=== PATIENT | male | born 1955 | race Caucasian/White ===

== ENCOUNTER → 2017-01-14 | Outpatient (CLI) | payer BC ==
[~2017-01-14] VITALS: Ht 180.3 cm; Wt 100.0 kg
[~2017-01-14] MED LIST: ALDACTONE100 MG PO; ALDACTONE50 MG PO; AMLODIPINE BES2.5 MG PO; ASPIRIN81 M2 PO; BIOTIN1000 MICRO PO; CENTRUM SILVER1 EAC3 PO; CONSTULOSE10 GM/15 M PO; Chronulac,Cephulac,E PO; DAILY VALUE1 EACH PO; FISH OIL 1,2001 EAC5 PO; FISH OIL300 MG PO; FLORINEF ACETA0.1 MG PO; FOLIC ACID1 MG PO; FUROSEMIDE20 MG PO; FUROSEMIDE40 MG PO; FUROSEMIDE80 MG PO; LASIX40 MG PO; MAGNESIUM400 M1 PO; MELATIN3 MG PO; METFORMIN HCL1000 MG PO; MILK THISTLE150 MG PO; MILK THISTLE200 M1 PO; MILK THISTLE500 MG PO; ODOR FREE GARL1 EACH PO; OMEPRAZOLE40 M1 PO; ONE DAILY COMP1 EAC1 PO; PREDNISONE5 MG PO; PROGRAF1 MG PO; SPIRONOLACTONE50 MG PO; TUMERIC PO; XIFAXAN550 MG PO
[2017-01-14 07:28] VITALS: BP 139/88
== END | disposition home or self-care (01) ==
LOC: IVINF 07:24
PROVIDERS: Internal Medicine Gastroenterology
DX: R74.8 Abnormal levels of other serum enzymes (principal); R18.8 Other ascites; K74.60 Unspecified cirrhosis of liver
CPT/HCPCS: 80400; 82024 90; 82533 91; 96374; J0834